=== PATIENT | female | born 1995 | race Caucasian/White ===

== ENCOUNTER 2020-07-03 00:24 | Emergency (ER) | payer MEDICAID, OTHER ==
[~2020-07-03] VITALS: Ht 152.4 cm; Wt 51.3 kg
[2020-07-03 00:29] VITALS: BP 139/98
--- NOTE | 2020-07-03 00:35 | NUR ---
PT AMBULATED TO RESTROOM WITH STEADY GAIT.
--- NOTE | 2020-07-03 00:40 | NUR ---
UA PROVIDED. HCG NEGATIVE. UA COLLECTED BY [employer].
--- NOTE | 2020-07-03 00:45 | NUR ---
24 Y/O FEMALE PRESENTED TO ED C/O BACK HEAD INJURY X 1 HR. PT STATES SHE WAS OUT WITH FRIENDS AND FELL BACK AND HIT THE BACK OF HER HEAD. PT DENIES ANY LOC. PT DENIES N/V/BLURRY VISION/DOUBLE VISION. PT C/O HEAD ACHE , THROBBING 9/10. PT ACTING APPROPRIATE , A/O X 4 , SPEECH CLEAR AND INTACT. PERRLA 3MM. PT RESTING IN BED, LOCKED AND IN LOWEST POSITION, HOB ELEVATED, SIDE RAIL X1. PT PROVIDED BLANKET , LIGHTS DIMMED FOR COMFORT. ERMD MADE AWARE OF PT STATUS. PMH: DENIES NKA
[2020-07-03] MEDS ORDERED: HYDROcodone/APAP 5/325 MG 1 TAB TAB PO ONE (01:10)
--- NOTE | 2020-07-03 01:51 | NUR ---
PT TAKEN TO CT VIA W/C
--- NOTE | 2020-07-03 02:05 | NUR ---
PT STATES HER HEAD PAIN IS FEELING BETTER AFTER NORCO ADMINISTRATION. PT STATES THAT THE PAIN HAS SLOWLY STARTED RADIATING TO LT JAW. ERMD MADE AWARE.
[2020-07-03 02:28] VITALS: BP 136/76
[2020-07-03] MEDS ORDERED: IBUPROFEN 400 MG TAB PO ONE (02:40)
--- NOTE | 2020-07-03 03:10 | NUR ---
Patient discharged with v/s stable. Written and verbal after care instructions given and explained. Patient verbalized understanding. Ambulatory with steady gait. All questions addressed prior to discharge. Advised to follow up with PMD.
== END 2020-07-03 03:10 | disposition home or self-care (01) ==
LOC: MED 00:24
DX: S00.03XA Contusion of scalp, initial encounter (principal); F41.9 Anxiety disorder, unspecified; W18.39XA Other fall on same level, initial encounter; Y93.89 Activity, other specified; Y92.89 Other specified places as the place of occurrence of the external cause; Y99.8 Other external cause status
CPT/HCPCS: 70450; 81025; 99291